=== PATIENT | female | born 1970 | race Caucasian/White ===

== ENCOUNTER 2016-12-24 16:00 | Emergency (ER) | payer SELFPAY ==
--- NOTE | 2016-12-24 16:32 | EDM.PDOC ---
ED HPI RENAL/ - General Chief Complaint: Genitourinary Problem Stated Complaint: KIDNEY INFECTION Time Seen by Provider: 12/24/16 16:20 Source: Reports: Patient, Old records History Limitations: Reports: No limitations - History of Present Illness INITIAL COMMENTS - FREE TEXT/NARRATIVE: Rosalia comes in with a relapse of bilateral CVA pain over the past 24 hrs, which she reports is consistent with interstitial cystitis. She was seen June 14, 2016 with similar sxs with a normal UA, and managed with Dilaudid. She reports a prior hx of stone disease, back pain, and anxiety. She is requesting Dialudid for pain management, reporting Toradol and Tramadol do not work. She has not established with a PCP since moving to the [facility] last year. - Related Data Allergies/ADRs: Allergies Allergy/AdvReac Type Severity Reaction Status Date / Time No Known Allergies Allergy Verified 12/24/16 16:09 Home Meds: Home Meds Diazepam [Valium] 10 mg PO DAILY 06/14/16 [History] Pentosan Polysulfate Sodium [Elmiron] 100 mg PO TID 06/14/16 [History] Ketorolac [Toradol] 10 mg PO Q6H PRN #20 tab 12/24/16 [Rx] Past Medical History Respiratory History: Reports: Other (see below) Other Respiratory History: EMPHYSEMA Genitourinary History: Reports: Renal calculus, UTI, recurrent, Other (see below ) Other Genitourinary History: INTERSTITIAL CYSTITIS [employer]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: 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: Other OB/BYN History: HYSTERECTOMY Musculoskeletal History: Reports: Arthritis, Back pain, chronic Psychiatric History: Reports: Anxiety - Past Surgical History GI Surgical History: Reports: Appendectomy Social & Family History - Family History Family Medical History: Noncontributory - Tobacco Use Smoking Status *Q: Current Every Day Smoker Years of Tobacco use: 20 Packs/Tins Daily: 0.5 - Caffeine Use Caffeine Use: Reports: Tea - Recreational Drug Use Recreational Drug Use: No ED ROS GENERAL - Review of Systems Review Of Systems: See Below Constitutional: Reports: no symptoms HEENT: Reports: No symptoms Respiratory: Reports: No Symptoms Cardiovascular: Reports: No symptoms Endocrine: Reports: no symptoms GI/Abdominal: Reports: No symptoms : Reports: other (back pain reportedly secondary to interstitial cystitis) Musculoskeletal: Reports: back pain Skin: Reports: no symptoms Neurological: Reports: No Symptoms Psychiatric: Reports: Anxiety Hematologic/Lymphatic: Reports: no symptoms Immunologic: Reports: no symptoms ED EXAM, RENAL/ - Physical Exam Exam: See Below Exam Limited By: No limitations General Appearance: alert, WD/WN, no apparent distress, anxious Throat/Mouth: Normal inspection Head: normocephalic Neck: normal inspection, supple, non-tender Respiratory/Chest: lungs clear, normal breath sounds Cardiovascular: regular rate, rhythm GI/Abdominal: normal bowel sounds, soft, non tender, no organomegaly, no distention, no mass Back Exam: normal inspection, full range of motion Extremities: normal inspection, normal range of motion Neurological: alert, oriented, CN II-XII intact, normal cognition, normal gait, no motor/sensory deficits Psychiatric: normal affect, anxious Skin Exam: Warm, Dry Lymphatic: no adenopathy Course - Vital Signs Text/Narrative:: Following admission to the [facility] ED I obtained a UA, CBC and BMP, all normal. Her request for Dilaudid was denied, but she did accept a prescription for Toradol. She was advised follow up with PCP in [place]. Last Recorded V/S: Last Vital Signs Temp 36.7 C 12/24/16 16:16 Pulse 81 12/24/16 16:16 Resp 20 12/24/16 16:16 BP 109/76 12/24/16 16:16 Pulse Ox 100 12/24/16 16:16 - Orders/Labs/Meds Labs: Laboratory Tests 12/24/16 12/24/16 12/24/16 Range/Units 16:18 16:45 16:45 WBC 4.9 (4.5-12.0) X10-3/uL RBC 4.44 (3.23-5.20) x10(6)uL Hgb 14.0 (11.5-15.5) g/dL Hct 41.6 (30.0-51.3) % MCV 93.6 (80-96) fL MCH 31.4 (27.7-33.6) pg MCHC 33.6 (32.2-35.4) g/dL RDW 13.5 (11.5-15.5) % Plt Count 304 (125-369) X10(3)uL Sodium 139 (135-145) mmol/L Potassium 4.2 (3.5-5.3) mmol/L Chloride 106 (100-110) mmol/L Carbon Dioxide 26 (23-29) mmol/L BUN 11 (5-20) mg/dL Creatinine 0.8 (0.6-1.3) mg/dL Est Cr Clr Drug Dosing 61.77 mL/min Estimated GFR (MDRD) > 60 (>60) BUN/Creatinine Ratio 13.8 (9-20) Glucose 95 (80-116) mg/dL Calcium 9.0 (8.6-10.2) mg/dL Urine Color Yellow (YELLOW) Urine Appearance Slightly cloudy (CLEAR) Urine pH 6.0 (5.0-6.5) Ur Specific [place] 1.020 (1.010-1.025) Urine Protein Negative (NEGATIVE) mg/dL Urine Glucose (UA) Normal (NEGATIVE) mg/dL Urine Ketones Negative (NEGATIVE) mg/dL Urine Occult Blood Negative (NEGATIVE) Urine Nitrite Negative (NEGATIVE) Urine Bilirubin Negative (NEGATIVE) Urine Urobilinogen Normal (NEGATIVE) mg/dL Ur Leukocyte Esterase Negative (NEGATIVE) Urine RBC Not seen (0) Urine WBC 0-5 (0) Ur Squamous Epith Cells Moderate H (NS,R,O) Urine Bacteria Many H (NS) Departure - Departure Time of Disposition: 17:10 Disposition: Home, Self-Care 01 Condition: fair Clinical Impression: Back pain Qualifiers: Back pain location: back pain in other location Chronicity: unspecified Qualified Code(s): M54.89 - Other dorsalgia Forms: ED Department Discharge - Problem List & Annotations (1) Back pain SNOMED Code(s): 535789390 Code(s): M54.9 - DORSALGIA, UNSPECIFIED Status: Acute Current Visit: Yes Annotation/Comment:: . I dispensed Toradol 10 mg qid prn for pain, and advised follow up with PCP. Qualifiers: Back pain location: back pain in other location Chronicity: unspecified Qualified Code(s): M54.89 - Other dorsalgia - Problem List Review Problem List Initiated/Reviewed/Updated: Yes - Assessment/Plan Plan: Follow up with PCP.
[2016-12-24 18:00] VITALS: BP 120/75
== END 2016-12-24 17:20 | disposition home or self-care (01) ==
LOC: FB.ED 16:00
DX: M54.89 Other dorsalgia (principal); M19.90 Unspecified osteoarthritis, unspecified site; F41.9 Anxiety disorder, unspecified; F17.210 Nicotine dependence, cigarettes, uncomplicated; Z79.899 Other long term (current) drug therapy; Z90.710 Acquired absence of both cervix and uterus; Z90.49 Acquired absence of other specified parts of digestive tract
CPT/HCPCS: 36415; 80048; 81001; 85027; 99283; 99284

== ENCOUNTER 2017-06-17 11:15 | Emergency (ER) | payer MEDICAID ==
--- NOTE | 2017-06-17 11:31 | EDM.PDOC ---
ED HPI GENERAL MEDICAL PROBLEM - General Stated Complaint: BLADDER ISSUE Time Seen by Provider: 06/17/17 11:15 Source of Information: Reports: Patient History Limitations: Reports: No Limitations - History of Present Illness INITIAL COMMENTS - FREE TEXT/NARRATIVE: 46 years old w f with a h/u interstitial cystitis, Osteopenia, S/P total hysterectomy, came to the ed due worsening lower abd. pain in the past few days with painful sexual intercourse and vaginal discharge. No Dysuria, N/V/D Dizziness or any other acute medical issues. BP 146/94 pulse 67 Temp 37.1 Onset: Unknown/Unsure Onset Date: 06/15/17 Onset Time: 07:00 Duration: Day(s):, Getting Worse Location: Reports: Upper Extremity, Right Quality: Reports: Ache, Burning, Throbbing Severity: Mild Improves with: Reports: Rest Worsens with: Reports: Other (intercourse, yellowish material extruding) Associated Symptoms: Reports: No Other Symptoms lower abd and back flanks Pain Score (Numeric/FACES): 5 - Related Data Allergies Allergy/AdvReac Type Severity Reaction Status Date / Time No Known Allergies Allergy Verified 06/17/17 11:46 Home Meds: Home Meds Pentosan Polysulfate Sodium [Elmiron] 100 mg PO TID 06/14/16 [History] Azithromycin [IJD: Azithromycin] 250 mg PO DAILY #6 tab 06/17/17 [Rx] Phenazopyridine [Pyridium] 100 mg PO DAILY 06/17/17 [History] hydrOXYzine Pamoate [Vistaril] 25 mg PO Q8H PRN 06/17/17 [History] Past Medical History Respiratory History: Reports: Other (See Below) Other Respiratory History: EMPHYSEMA Genitourinary History: Reports: Renal Calculus, UTI, Recurrent, Other (See Below ) Other Genitourinary History: INTERSTITIAL CYSTITIS [employer]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 OB/BYN History: HYSTERECTOMY Musculoskeletal History: Reports: Arthritis, Back Pain, Chronic Psychiatric History: Reports: Anxiety - Past Surgical History GI Surgical History: Reports: Appendectomy Social & Family History - Family History Family Medical History: Noncontributory - Tobacco Use Smoking Status *Q: Current Every Day Smoker Years of Tobacco use: 20 Packs/Tins Daily: 0.5 - Caffeine Use Caffeine Use: Reports: Tea - Recreational Drug Use Recreational Drug Use: No ED ROS GENERAL - Review of Systems Review Of Systems: See Below Constitutional: Reports: No Symptoms HEENT: Reports: No Symptoms Respiratory: Reports: No Symptoms Cardiovascular: Reports: No Symptoms Endocrine: Reports: No Symptoms GI/Abdominal: Reports: No Symptoms : Reports: Discharge (from the vagina, S/P total hysterectomy), Pain (during intercourse) Musculoskeletal: Reports: No Symptoms Skin: Reports: No Symptoms Neurological: Reports: No Symptoms Psychiatric: Reports: No Symptoms Hematologic/Lymphatic: Reports: No Symptoms Immunologic: Reports: No Symptoms ED EXAM, RENAL/ - Physical Exam Exam: See Below Exam Limited By: No Limitations General Appearance: Alert, WD/WN, Mild Distress, Thin Eye Exam: Bilateral Eye: Normal Inspection Ears: Normal External Exam Nose: Normal Inspection, Normal Mucosa Throat/Mouth: Normal Inspection, Normal Lips Head: Atraumatic, Normocephalic Neck: Normal Inspection, Supple, Non-Tender, Full Range of Motion Respiratory/Chest: No Respiratory Distress, Lungs Clear, Normal Breath Sounds Cardiovascular: Normal Peripheral Pulses, Regular Rate, Rhythm, No Edema, No Gallop, No JVD, No Murmur GI/Abdominal: Normal Bowel Sounds, Soft, Non-Tender, No Organomegaly, No Distention, No Abnormal Bruit, No Mass, Pelvis Stable (Female) Exam: Vaginal Discharge Rectal (Female) Exam: Deferred Back Exam: Normal Inspection, Full Range of Motion Extremities: Normal Inspection, Normal Range of Motion, Non-Tender, No Pedal Edema Neurological: Alert, Oriented, CN II-XII Intact, Normal Cognition, Normal Gait, No Motor/Sensory Deficits Psychiatric: Normal Affect, Normal Mood Skin Exam: Warm, Dry, Intact, Normal Color, No Rash Lymphatic: No Adenopathy Course - Vital Signs Text/Narrative:: 46 years old w f with a h/u interstitial cystitis, Osteopenia, S/P total hysterectomy, came to the ed due worsening lower abd. pain in the past few days with painful sexual intercourse and vaginal discharge. No Dysuria, N/V/D Dizziness or any other acute medical issues. BP 146/94 pulse 67 Temp 37.1 PE: WNWD WF with vaginal discharge Plelvic exam: Please see above Labs: CBC, BMP and UA nl. Trichomonas, clue cell, many WBC, yeast not seen Impression: Bacterial vaginosis, Trichomonas infection of the vagina Tx: Flagyl, Rocephin 1 gm im Z-Pack was given as a prescription Reexam: Improved Plan: D/C with instructions Last Recorded V/S: Last Vital Signs Temp 36.6 C 06/17/17 13:30 Pulse 80 06/17/17 13:30 Resp 20 06/17/17 13:30 BP 141/81 H 06/17/17 13:30 Pulse Ox 99 06/17/17 13:30 - Orders/Labs/Meds Orders: Active Orders 24 hr Category Date Time Status Pelvic Exam, Set Up [RC] ASDIRECTED Care 06/17/17 12:16 Active CHLAMYDIA,AND GC BY APTIMA Stat Lab 06/17/17 12:50 Received Labs: Laboratory Tests 06/17/17 06/17/17 06/17/17 Range/Units 11:30 11:40 11:40 WBC 6.1 (4.5-12.0) X10-3/uL RBC 5.01 (3.23-5.20) x10(6)uL Hgb 15.6 H (11.5-15.5) g/dL Hct 46.0 (30.0-51.3) % MCV 91.8 (80-96) fL MCH 31.1 (27.7-33.6) pg MCHC 33.9 (32.2-35.4) g/dL RDW 14.5 (11.5-15.5) % Plt Count 373 H (125-369) X10(3)uL MPV 7.6 (7.4-10.4) fL Neut % (Auto) 55.7 (46-82) % Lymph % (Auto) 34.7 (13-37) % M[place]racken % (Auto) 6.1 (4-12) % Eos % (Auto) 2 (1.0-5.0) % Baso % (Auto) 1 (0-2) % Neut # (Auto) 3.4 (1.6-8.3) # Lymph # (Auto) 2.1 (0.6-5.0) # M[place]racken # (Auto) 0.4 (0.0-1.3) # Eos # (Auto) 0.1 (0.0-0.8) # Baso # (Auto) 0.1 (0.0-0.2) # Sodium 136 (135-145) mmol/L Potassium 4.0 (3.5-5.3) mmol/L Chloride 103 (100-110) mmol/L Carbon Dioxide 23 (23-29) mmol/L BUN 15 (5-20) mg/dL Creatinine 0.7 (0.6-1.3) mg/dL Est Cr Clr Drug Dosing 70.60 mL/min Estimated GFR (MDRD) > 60 (>60) BUN/Creatinine Ratio 21.4 H (9-20) Glucose 90 (80-116) mg/dL Calcium 9.3 (8.6-10.2) mg/dL Urine Color Yellow (YELLOW) Urine Appearance Clear (CLEAR) Urine pH 6.0 (5.0-6.5) Ur Specific [place] 1.015 (1.010-1.025) Urine Protein Negative (NEGATIVE) mg/dL Urine Glucose (UA) Normal (NEGATIVE) mg/dL Urine Ketones Negative (NEGATIVE) mg/dL Urine Occult Blood Negative (NEGATIVE) Urine Nitrite Negative (NEGATIVE) Urine Bilirubin Negative (NEGATIVE) Urine Urobilinogen Normal (NEGATIVE) mg/dL Ur Leukocyte Esterase Negative (NEGATIVE) Urine RBC 0-5 (0) Urine WBC 0-5 (0) Ur Squamous Epith Cells Few H (NS,R,O) Urine Bacteria Rare H (NS) Urine Trichomonas Present H (NS) Meds: Medications Discontinued Medications Generic Name Dose Route Start Last Admin Trade Name Adenq PRN Reason Stop Dose Admin Ceftriaxone Sodium 1,000 mg 06/17/17 13:21 06/17/17 13:32 Rocephin IM 06/17/17 13:22 1,000 mg ONETIME ONE Administration Metronidazole 2,000 mg 06/17/17 13:21 06/17/17 13:32 Flagyl PO 06/17/17 13:22 2,000 mg ONETIME ONE Administration Departure - Departure Time of Disposition: 13:29 Disposition: Home, Self-Care 01 Condition: Good Clinical Impression: Bacterial vaginal infection, Trichomonas vaginalis infection - Discharge Information Prescriptions: Azithromycin [IJD: Azithromycin] 250 mg PO DAILY #6 tab Instructions: Bacterial Vaginosis, [id number] Referrals: PCP,Not In Area [Primary Care Provider] - Forms: ED Department Discharge Additional Instructions: Please take the Z Pack as recommended, please follow up, Come back if your symptoms get worse acutely. Motrin for pain. - My Orders Last 24 Hours: My Active Orders 06/17/17 12:16 Pelvic Exam, Set Up [RC] ASDIRECTED 06/17/17 12:50 CHLAMYDIA,AND GC BY APTIMA Stat - Assessment/Plan Last 24 Hours: My Active Orders 06/17/17 12:16 Pelvic Exam, Set Up [RC] ASDIRECTED 06/17/17 12:50 CHLAMYDIA,AND GC BY APTIMA Stat
[2017-06-17] MEDS ORDERED: cefTRIAXone 1,000 MG VIAL IM ONE (13:21)
[2017-06-17] MEDS ORDERED: metroNIDAZOLE 500 MG Tab PO ONE (13:21)
[2017-06-17 14:27] VITALS: BP 141/81
== END 2017-06-17 13:45 | disposition home or self-care (01) ==
LOC: FB.ED 11:15
DX: N76.0 Acute vaginitis (principal); A59.01 Trichomonal vulvovaginitis; F17.210 Nicotine dependence, cigarettes, uncomplicated; Z79.899 Other long term (current) drug therapy
CPT/HCPCS: 36415; 80048; 81001; 85025; 87210; 87491; 87591; 96372; 99283; A9270; J0696; 99284

== ENCOUNTER 2017-07-19 16:32 | Emergency (ER) | payer MEDICAID ==
[2017-07-19 17:07] VITALS: BP 139/89
[2017-07-19] MEDS ORDERED: HYDROmorphone 2 MG/ML SDV IM ONE (18:12)
--- NOTE | 2017-07-19 18:25 | EDM.PDOC ---
ED HPI GENERAL MEDICAL PROBLEM - General Chief Complaint: Chest Pain Stated Complaint: should pain left side Time Seen by Provider: 07/19/17 16:57 Source of Information: Reports: Patient, Family History Limitations: Reports: No Limitations - History of Present Illness INITIAL COMMENTS - FREE TEXT/NARRATIVE: 46 y.o.w.f. came to the ed because of left shoulder, neck and upper back pain for several weeks. Pt was seen at the clinic and sent to the ed for further care. Pt is not able to sleep at night because her shoulder, neck and upper back hurt with even minor movement. No trauma, however. No F/C no SOB or any other acute medical issues. BP 139/89 pulse 80 Pulse ox 100% on RA RR 18 temp 36.8 Onset Date: 06/23/17 Onset Time: 08:00 Duration: Week(s): (worse today) Treatments ASSISTANT AT SURGERY: Reports: EKG, Other (see below) Other Treatments ASSISTANT AT SURGERY: lab at clinic Left Shoulder Pain Score (Numeric/FACES): 8 - Related Data Allergies Allergy/AdvReac Type Severity Reaction Status Date / Time No Known Allergies Allergy Verified 07/19/17 17:08 Home Meds: Home Meds Pentosan Polysulfate Sodium [Elmiron] 100 mg PO TID 06/14/16 [History] Phenazopyridine [Pyridium] 100 mg PO DAILY 06/17/17 [History] hydrOXYzine Pamoate [Vistaril] 25 mg PO Q8H PRN 06/17/17 [History] Past Medical History Respiratory History: Reports: Other (See Below) Other Respiratory History: EMPHYSEMA Genitourinary History: Reports: Renal Calculus, UTI, Recurrent, Other (See Below ) Other Genitourinary History: INTERSTITIAL CYSTITIS [employer]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 OB/BYN History: HYSTERECTOMY Musculoskeletal History: Reports: Arthritis, Back Pain, Chronic Psychiatric History: Reports: Anxiety - Infectious Disease History Infectious Disease History: Reports: Chicken Pox - Past Surgical History GI Surgical History: Reports: Appendectomy Female Surgical History: Reports: Hysterectomy Social & Family History - Family History Family Medical History: Noncontributory - Tobacco Use Smoking Status *Q: Current Every Day Smoker Years of Tobacco use: 30 Packs/Tins Daily: 1 - Caffeine Use Caffeine Use: Reports: Coffee, Soda - Recreational Drug Use Recreational Drug Use: No ED ROS GENERAL - Review of Systems Review Of Systems: See Below Constitutional: Reports: No Symptoms HEENT: Reports: No Symptoms Respiratory: Reports: No Symptoms Cardiovascular: Reports: No Symptoms Endocrine: Reports: No Symptoms GI/Abdominal: Reports: No Symptoms : Reports: No Symptoms Musculoskeletal: Reports: Shoulder Pain (left), Back Pain (upper back pain, neck pain) Skin: Reports: No Symptoms Neurological: Reports: No Symptoms Psychiatric: Reports: No Symptoms Hematologic/Lymphatic: Reports: No Symptoms Immunologic: Reports: No Symptoms ED EXAM, GENERAL - Physical Exam Exam: See Below Exam Limited By: No Limitations General Appearance: Alert, WD/WN, Mild Distress Eye Exam: Bilateral Eye: Normal Inspection Ears: Normal External Exam Ear Exam: Bilateral Ear: Auricle Normal Nose: Normal Inspection Throat/Mouth: Normal Inspection Head: Atraumatic, Normocephalic Neck: Normal Inspection, Tender Lateral Respiratory/Chest: No Respiratory Distress, Lungs Clear, Normal Breath Sounds Cardiovascular: Normal Peripheral Pulses, Regular Rate, Rhythm, No Edema, No Gallop Peripheral Pulses: 1+: Radial (L), Radial (R) GI/Abdominal: Normal Bowel Sounds, Soft, Non-Tender (Female) Exam: Deferred Rectal (Female) Exam: Deferred Back Exam: Normal Inspection, Muscle Spasm, Paraspinal Tenderness (left side) Extremities: Normal Inspection, Normal Range of Motion, Non-Tender Neurological: Alert, Oriented, CN II-XII Intact, Normal Cognition, Normal Gait, No Motor/Sensory Deficits Psychiatric: Normal Affect, Normal Mood Skin Exam: Warm, Dry, Intact, Normal Color, No Rash Lymphatic: No Adenopathy Course - Vital Signs Text/Narrative:: 46 y.o.w.f. came to the ed because of left shoulder, neck and upper back pain for several weeks. Pt was seen at the clinic and sent to the ed for further care. Pt is not able to sleep at night because her shoulder, neck and upper back hurt with even minor movement. No trauma, however. No F/C no SOB or any other acute medical issues. BP 139/89 pulse 80 Pulse ox 100% on RA RR 18 temp 36.8 Pt was using Motrin in the past which did not help PE: WNWD WF NAD, pt is not able to elevate here left arm above the horizontal line, has tender at her left lat shoulder and left paravertebral upper back and left lat neck. Imaging: MRI of shoulder, c spine and T spine are pending, scheduled for 1230 on 07/20/2017 Impression: Pssible rotator cuff tear Tx: Arm sling, Dilaudid, ice Reexam: Improved Plan: D/C with instructions Addendum: MRI was performed on 07/20/2017 results are pending Last Recorded V/S: Last Vital Signs Temp 37.3 C 07/19/17 16:57 Pulse 80 07/19/17 16:57 Resp 18 07/19/17 16:57 BP 139/89 07/19/17 16:57 Pulse Ox 100 07/19/17 16:57 - Orders/Labs/Meds Labs: Laboratory Tests 07/19/17 07/19/17 07/19/17 Range/Units 17:20 17:20 17:20 PT 12.5 H (8.7-11.1) INR 1.23 H (0.89-1.13) D-Dimer, Quantitative < 100 L (100-400) ng/mL Troponin I < 0.017 L (<0.017-0.056) ng/mL Meds: Medications Discontinued Medications Generic Name Dose Route Start Last Admin Trade Name Freq PRN Reason Stop Dose Admin Hydromorphone HCl 1 mg 07/19/17 18:12 07/19/17 18:18 Dilaudid IM 07/19/17 18:13 1 mg ONETIME ONE Administration Departure - Departure Time of Disposition: 18:18 Disposition: Home, Self-Care 01 Condition: Good Clinical Impression: Thoracic spine pain, Cervical spine pain Shoulder pain, left Qualifiers: Chronicity: unspecified Qualified Code(s): M25.512 - Pain in left shoulder Referrals: Major Juarez PA [Primary Care Provider] - Forms: ED Department Discharge Additional Instructions: Please show up at 12.30 am at the main entry to get an MRI of your left shoulder , c spine and T spine. Please cont your pain meds, ice. Please come back if your symptoms get worse acutely.
== END 2017-07-19 18:34 | disposition home or self-care (01) ==
LOC: FB.ED 16:32
DX: M25.512 Pain in left shoulder (principal); M54.2 Cervicalgia; M54.6 Pain in thoracic spine; F17.210 Nicotine dependence, cigarettes, uncomplicated; Z79.899 Other long term (current) drug therapy
CPT/HCPCS: 36415; 84484; 85379; 85610; 96372; 99283; J1170

== ENCOUNTER 2018-03-06 16:52 | Emergency (ER) | payer MEDICAID, OTHER ==
[2018-03-06] MEDS ORDERED: Lidocaine 2% 20 ML MDV INJECT ONE (16:53)
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
[2018-03-06] MEDS ORDERED: Iopamidol 755 Mg/ML 75 ML Bottle IV ONE (17:14)
[2018-03-06] MEDS ORDERED: Ketorolac 60 MG/2 ML SDV IM ONE (17:21)
[2018-03-06] MEDS ORDERED: Potassium Chloride 20 MEQ Tab.ER PO ONE (18:03)
[2018-03-06] MEDS ORDERED: cloNIDine 0.1 MG Tab PO ONE (18:55)
[2018-03-06] MEDS ORDERED: Morphine 10 MG/ML SDV IV STA (18:55)
[2018-03-06] MEDS ORDERED: Diphtheria,Pertussis(Acell),Tetanus Vaccine 0.5 ML SDV IM ONE (19:00)
[2018-03-06] MEDS ORDERED: Morphine 10 MG/ML Syringe ONE (19:04)
[2018-03-06] MEDS ORDERED: Morphine 10 MG/ML Syringe IVPUSH ONE ×2 (19:13→20:07)
[2018-03-06] MEDS ORDERED: Acetaminophen/oxyCODONE 325-5 MG Tab PO ONE (19:30)
[2018-03-06 22:15] VITALS: BP 155/87
== END 2018-03-06 20:58 | disposition home or self-care (01) ==
LOC: FB.ED 16:52
DX: S01.81XA Laceration without foreign body of other part of head, initial encounter (principal); N63.0 Unspecified lump in unspecified breast; R91.8 Other nonspecific abnormal finding of lung field; Z79.899 Other long term (current) drug therapy; V89.2XXA Person injured in unspecified motor-vehicle accident, traffic, initial encounter; Z23 Encounter for immunization
CPT/HCPCS: 12011; 36415; 70450; 71260; 72125; 80048; 80305; 81001; 85025; 85610; 90471; 90715; 96372; 96374; 96376; 99283; 99284; A9270; G0480; J1885; J2270; Q9967; 90472